=== PATIENT | female | born 1970 | race Caucasian/White ===

== ENCOUNTER 2023-12-08 12:15 | Inpatient (IN) | payer OTHER ==
[~2023-12-08] VITALS: Ht 162.6 cm; Wt 90.7 kg
[2023-12-08] MEDS ORDERED: ZESTRIL20 MG PO (14:54)
[2023-12-08] MEDS ORDERED: LEVO-T50 MCG PO (14:54)
[2023-12-08] MEDS ORDERED: TRAZODONE HCL100 MG PO (14:55)
[2023-12-08] MEDS ORDERED: ALENDRONATE SOD35 MG PO (14:55)
[2023-12-08] MEDS ORDERED: ATORVASTATIN CA10 MG PO (14:55)
[2023-12-08] MEDS ORDERED: RESTORIL30 MG PO (14:56)
[2023-12-08] MEDS ORDERED: LORAZEPAM0.5 MG PO (14:56)
[2023-12-08] MEDS ORDERED: ZOLOFT100 MG PO (14:57)
[2023-12-08] MEDS ORDERED: HYDRODIURIL12.5 MG PO (14:57)
[2023-12-08] MEDS ORDERED: NAPR500T14 PO (14:57)
[2023-12-14] MEDS ORDERED: CEFOXITIN SODIUM 2,000 MG VIAL IV ONE ×2 (09:55→16:56)
[2023-12-14] MEDS ORDERED: POVIDONE-IODINE 118 ML BOTT TOP ONE (09:55)
[2023-12-14] MEDS ORDERED: CEFOXITIN SODIUM 2,000 MG VIAL IV SCH ×3 (12:15→17:00)
[2023-12-14] MEDS ORDERED: POVIDONE-IODINE 118 ML BOTT TOP SCH ×2 (12:15→13:15)
[2023-12-14] MEDS ORDERED: THROMBIN,HU/FIBRINOGEN/CALCIUM 10 ML SYRINGE TOP ONE (12:39)
[2023-12-14] MEDS ORDERED: VISTASEAL DUAL APPICATOR 1 EACH APPL TOP ONE (12:39)
[2023-12-14] MEDS ORDERED: BUPIVACAINE HCL/PF 0.5% 1ML ONE (12:58)
[2023-12-14] MEDS ORDERED: THROMBIN,HU/FIBRINOGEN/CALCIUM 10 ML SYRINGE TOP SCH (13:15)
[2023-12-14] MEDS ORDERED: BUPIVACAINE HCL/PF 0.5% 1ML IJ SCH (13:15)
[2023-12-14] MEDS ORDERED: VISTASEAL DUAL APPICATOR 1 EACH APPL TOP SCH (13:15)
[2023-12-14] MEDS ORDERED: ONDANSETRON HCL 2 MG/ML VIAL IV PRN (13:30)
[2023-12-14] MEDS ORDERED: MORPHINE SULFATE 4 MG/ML CARTRIDGE IV PRN (13:30)
[2023-12-14] MEDS ORDERED: RINGERS SOLUTION,LACTATED 1,000 ML IV SCH (13:30)
[2023-12-14] MEDS ORDERED: SUGAMMADEX SODIUM 200 MG/2 ML VIAL IV ONE (14:14)
[2023-12-14] MEDS ORDERED: SUGAMMADEX SODIUM 200 MG/2 ML VIAL IV SCH (15:00)
[2023-12-14] MEDS ORDERED: SIMETHICONE 125 MG CAPSULE PO SCH (17:00)
[2023-12-14] MEDS ORDERED: KETOROLAC TROMETHAMINE 30 MG VIAL IU SCH (17:00)
[2023-12-14 19:18] LABS: CALCIUM 9.8 mg/dL (8.5-10.1); CREATININE SERUM 0.86 mg/dL (0.55-1.02); GFR 68.76; POTASSIUM 4.53 mEq/L (3.5-5.1)
[2023-12-14 19:59] LABS: HEMATOCRIT 38.4 % (36.0-45.00); MEAN CELL VOLUME 88.6 fL (80.00-100.00); MEAN CORPUSCULAR HGB CONC 33.8 g/dl (32.0-36.0); PLATELET COUNT 228 K/uL (150-450); RED BLOOD COUNT 4.33 M/uL (4.00-6.00); RED CELL DISTRIBUTION WIDTH 13.4 % (11.5-14.5)
[2023-12-14] MEDS ORDERED: FAMOTIDINE/PF 20 MG/2 ML VIAL IV SCH (21:00)
[2023-12-14] MEDS ORDERED: DOCUSATE SODIUM 100MG CAP PO SCH (21:00)
[2023-12-15 02:07] LABS: HEMATOCRIT 37.3 % (36.0-45.00); HEMOGLOBIN 12.8 g/dL (12.0-15.00); MEAN CELL VOLUME 90.6 fL (80.00-100.00); MEAN CORPUSCULAR HEMOGLOBIN 31.1 pg (27.00-32.0); MEAN CORPUSCULAR HGB CONC 34.3 g/dl (32.0-36.0); PLATELET COUNT 227 K/uL (150-450); RED BLOOD COUNT 4.12 M/uL (4.00-6.00); RED CELL DISTRIBUTION WIDTH 13.3 % (11.5-14.5)
[2023-12-15 02:49] LABS: CALCIUM 9.1 mg/dL (8.5-10.1); CREATININE SERUM 0.59 mg/dL (0.55-1.02); GFR 106.22; POTASSIUM 4.57 mEq/L (3.5-5.1)
[2023-12-15] MEDS ORDERED: ENOXAPARIN SODIUM 40 MG/0.4 ML SYRINGE SUBCUTANEO SCH (09:00)
== END 2023-12-15 13:10 | disposition home or self-care (01) | DRG 740 ==
LOC: O/R 12-14 06:15 → OB/GYN 12-14 12:15
PROVIDERS: Obstetrics & Gynecology; ADMIT Obstetrics & Gynecology Gynecologic Oncology; ATTEND Obstetrics & Gynecology Gynecologic Oncology
PROC: 0UT74ZZ Resection of Bilateral Fallopian Tubes, Percutaneous Endoscopic Approach (ICD-10-PCS; 2023-12-14)
PROC: 0UT24ZZ Resection of Bilateral Ovaries, Percutaneous Endoscopic Approach (ICD-10-PCS; 2023-12-14)
PROC: 07BC4ZZ Excision of Pelvis Lymphatic, Percutaneous Endoscopic Approach (ICD-10-PCS; 2023-12-14)
PROC: 0UT94ZZ Resection of Uterus, Percutaneous Endoscopic Approach (ICD-10-PCS; principal; 2023-12-14 13:15)
DX: C54.1 Malignant neoplasm of endometrium (principal); C77.5 Secondary and unspecified malignant neoplasm of intrapelvic lymph nodes; D25.1 Intramural leiomyoma of uterus; Z20.822 Contact with and (suspected) exposure to COVID-19